=== PATIENT | female | born 2000 | race Caucasian/White ===

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

== ENCOUNTER → 2022-03-09 | Outpatient (REF) | payer BC ==
[~2022-03-09] MED LIST: IBUP-1022 PO; SERT50TA29
[2022-03-09 12:37] LABS: URINE PREG TEST NEGATIVE (NEGATIVE)
[2022-03-09 13:01] LABS: APPEARANCE, URINE MANUAL CLEAR (CLEAR); COLOR, URINE MANUAL YELLOW (YELLOW); SPECIFIC GRAVITY,URINE MANUAL 1.025 (1.002-1.035)
[2022-03-09 13:02] LABS: GLUCOSE, URINE (UA) MANUAL NEGATIVE (NEGATIVE); PROTEIN, URINE MANUAL TRACE mg/dL (NEGATIVE)
[2022-03-09 13:03] LABS: BILIRUBIN, URINE MANUAL NEGATIVE (NEGATIVE); BLOOD URINE MANUAL POSITIVE (NEGATIVE); KETONE, URINE MANUAL 1+ mg/dL (NEGATIVE); LEUKOCYTE ESTERASE, URINE MAN NEGATIVE (NEGATIVE); NITRITE, URINE MANUAL NEGATIVE (NEGATIVE); UROBILINOGEN, URINE MANUAL NORMAL (NORMAL)
[2022-03-09 14:05] LABS: BACTERIA, URINE SMALL AMOUNT; SQUAMOUS EPITHELIAL CELL URINE SMALL AMOUNT /hpf (SMALL AMT)
[2022-03-09 14:06] LABS: HYALINE CAST, URINE NONE SEEN /lpf (0-1); MUCUS, URINE SMALL AMOUNT (NEGATIVE)
[2022-03-09 14:19] LABS: GC DNA AMPLIFICATION NEGATIVE (NEGATIVE)
== END ==
LOC: M LAB REF 11:18
PROVIDERS: ATTEND Physician Assistant Medical
DX: N39.0 Urinary tract infection, site not specified (principal)

== ENCOUNTER → 2022-10-30 | Outpatient (REF) | payer BC | LOC: M PLALAB 09:08 | PROVIDERS: ATTEND Advanced Practice Midwife | DX: Z53.9 Procedure and treatment not carried out, unspecified reason (principal) ==

== ENCOUNTER → 2022-10-30 | Outpatient (CLI) | payer BC ==
[2022-10-30 14:19] LABS: HEMATOCRIT 36.1 % (36.0-47.0); HEMOGLOBIN 12.5 g/dl (12.0-15.5); MEAN CORPUSCULAR HEMOGLOBIN 31.1 pg (27.0-33.0); MEAN CORPUSCULAR HGB CONC 34.6 g/dl (32.0-36.5); MEAN CORPUSCULAR VOLUME 89.8 fl (80.0-96.0); PLATELET COUNT, AUTOMATED 320 10^3/uL (150-450); RED BLOOD COUNT 4.02 10^6/uL (4.00-5.40); WHITE BLOOD COUNT 6.4 10^3/uL (4.0-10.0)
[2022-10-30 14:54] LABS: HIV 1&2 SCREEN NEGATIVE (NEGATIVE)
[2022-10-30 15:01] LABS: HEPATITIS C VIRUS ABY INDEX 0.12 INDEX (<0.8)
[2022-10-30 16:06] LABS: GC DNA AMPLIFICATION NEGATIVE (NEGATIVE)
== END ==
LOC: M PLALAB 09:10
PROVIDERS: ATTEND Advanced Practice Midwife
DX: O23.591 Infection of other part of genital tract in pregnancy, first trimester (principal); O30.001 Twin pregnancy, unspecified number of placenta and unspecified number of amniotic sacs, first trimester; Z3A.00 Weeks of gestation of pregnancy not specified

== ENCOUNTER → 2022-11-22 | Outpatient (CLI) | payer BC | LOC: M WHC 09:54 | PROVIDERS: ATTEND Advanced Practice Midwife | DX: O30.001 Twin pregnancy, unspecified number of placenta and unspecified number of amniotic sacs, first trimester (principal) ==

== ENCOUNTER → 2023-01-07 | Outpatient (CLI) | payer BC | LOC: M WHC 14:10 | PROVIDERS: ATTEND Advanced Practice Midwife | DX: O30.032 Twin pregnancy, monochorionic/diamniotic, second trimester (principal); O32.1XX1 Maternal care for breech presentation, fetus 1; Z3A.19 19 weeks gestation of pregnancy ==

== ENCOUNTER → 2023-01-28 | Outpatient (CLI) | payer BC | LOC: M WHC 07:05 | PROVIDERS: ATTEND Advanced Practice Midwife | DX: O32.2XX0 Maternal care for transverse and oblique lie, not applicable or unspecified (principal); O30.032 Twin pregnancy, monochorionic/diamniotic, second trimester; Z3A.21 21 weeks gestation of pregnancy ==

== ENCOUNTER → 2023-03-22 | Outpatient (CLI) | payer BC | LOC: M WHC 13:18 | PROVIDERS: ATTEND Advanced Practice Midwife | DX: O30.033 Twin pregnancy, monochorionic/diamniotic, third trimester (principal); O36.5930 Maternal care for other known or suspected poor fetal growth, third trimester, not applicable or unspecified; Z3A.29 29 weeks gestation of pregnancy ==

== ENCOUNTER 2023-03-26 16:01 | Outpatient (CLI) | payer BC ==
[2023-03-26 16:34] VITALS: BP 115/61
[2023-03-26] MEDS ORDERED: BETAMETHASONE SOLUSPAN 6MG/ML 5ML VIAL IM ONE (16:55)
[2023-03-26] MEDS ORDERED: FERR325T3 PO (17:06)
[2023-03-26] MEDS ORDERED: FOLI400T13 PO (17:06)
[2023-03-26] MEDS ORDERED: PRENTAB53 PO (17:06)
[2023-03-26 17:15] VITALS: BP 105/61
[2023-03-26] MEDS ORDERED: HOME MED LIST COMPLETE! XX SCH (17:20)
[2023-03-27] MEDS ORDERED: TUMS750C5 PO (17:08)
[2023-03-27] MEDS ORDERED: TUMS500C PO (17:08)
== END 2023-03-26 19:41 | disposition home or self-care (01) ==
LOC: M LDO 16:01
PROVIDERS: ATTEND Obstetrics & Gynecology
DX: O36.5931 Maternal care for other known or suspected poor fetal growth, third trimester, fetus 1 (principal); O30.033 Twin pregnancy, monochorionic/diamniotic, third trimester; Z3A.30 30 weeks gestation of pregnancy; Z88.1 Allergy status to other antibiotic agents
CPT/HCPCS: 59025; 96372; G0463; J0702

== ENCOUNTER 2023-03-27 16:53 | Outpatient (CLI) | payer BC ==
[~2023-03-27] VITALS: Ht 165.1 cm; Wt 84.9 kg
[~2023-03-27 16:53] MED LIST changes: +FERR325T3 PO; +FOLI400T13 PO; +PRENTAB53 PO
[2023-03-27] MEDS ORDERED: TUMS500C PO (17:08)
[2023-03-27] MEDS ORDERED: TUMS750C5 PO (17:08)
[2023-03-27 17:09] VITALS: BP 123/61; O2SAT 98
[2023-03-27] MEDS ORDERED: BETAMETHASONE SOLUSPAN 6MG/ML 5ML VIAL IM ONE (17:10)
== END 2023-03-27 18:38 | disposition home or self-care (01) ==
LOC: M LDO 16:53
PROVIDERS: ATTEND Advanced Practice Midwife
DX: O36.5931 Maternal care for other known or suspected poor fetal growth, third trimester, fetus 1 (principal); O30.033 Twin pregnancy, monochorionic/diamniotic, third trimester; Z3A.30 30 weeks gestation of pregnancy
CPT/HCPCS: 59025; 76819; 76820; 96372; G0463; J0702

== ENCOUNTER → 2023-04-04 | Outpatient (CLI) | payer BC ==
[~2023-04-04] MED LIST changes: +TUMS500C PO; +TUMS750C5 PO
== END ==
LOC: M WHC 13:51
PROVIDERS: ATTEND Advanced Practice Midwife
DX: O30.033 Twin pregnancy, monochorionic/diamniotic, third trimester (principal); O36.5993 Maternal care for other known or suspected poor fetal growth, unspecified trimester, fetus 3; Z3A.31 31 weeks gestation of pregnancy; O32.2XX2 Maternal care for transverse and oblique lie, fetus 2

== ENCOUNTER → 2023-04-11 | Outpatient (CLI) | payer BC | LOC: M WHC 13:48 | PROVIDERS: ATTEND Advanced Practice Midwife | DX: O30.033 Twin pregnancy, monochorionic/diamniotic, third trimester (principal); O36.5930 Maternal care for other known or suspected poor fetal growth, third trimester, not applicable or unspecified; Z3A.32 32 weeks gestation of pregnancy ==

== ENCOUNTER → 2023-04-18 | Outpatient (CLI) | payer BC | LOC: M WHC 13:53 | PROVIDERS: ATTEND Advanced Practice Midwife | DX: O30.033 Twin pregnancy, monochorionic/diamniotic, third trimester (principal); O36.5990 Maternal care for other known or suspected poor fetal growth, unspecified trimester, not applicable or unspecified; Z3A.33 33 weeks gestation of pregnancy ==

== ENCOUNTER → 2023-04-25 | Outpatient (CLI) | payer BC | LOC: M WHC 13:57 | PROVIDERS: ATTEND Advanced Practice Midwife | DX: O30.033 Twin pregnancy, monochorionic/diamniotic, third trimester (principal); O36.5993 Maternal care for other known or suspected poor fetal growth, unspecified trimester, fetus 3; Z3A.34 34 weeks gestation of pregnancy; O32.2XX2 Maternal care for transverse and oblique lie, fetus 2 ==

== ENCOUNTER 2023-04-29 07:08 | Inpatient (IN) | payer BC, MEDICAID ==
[~2023-04-29] VITALS: Ht 165.1 cm; Wt 90.7 kg
[2023-04-29] VITALS (10 sets, daily range): BP systolic 122–142; BP diastolic 70–94; TEMP 97.4; O2SAT 94–97
[2023-04-29] MEDS ORDERED: TRANEXAMIC ACID INJection 1,000 MG in NS 100 ML IV PRN (07:25)
[2023-04-29] MEDS ORDERED: CARBOPROST TROMETHAMINE 250 MCG/ML AMP IM PRN (07:25)
[2023-04-29] MEDS ORDERED: OXYTOCIN DRIP 30 UNITS in IV 1 EA IV PRN (07:25)
[2023-04-29] MEDS ORDERED: METHYLERGONOVINE MALEATE 0.2MG/ML 1ML VIAL IM PRN (07:25)
[2023-04-29] MEDS: LACTATED RINGER'S 1000 ML IV STA (07:47)
[2023-04-29 07:53] LABS: HEMATOCRIT 35.7 % (36.0-47.0); MEAN CORPUSCULAR HEMOGLOBIN 33.1 pg (27.0-33.0); MEAN CORPUSCULAR HGB CONC 36.4 g/dl (32.0-36.5); MEAN CORPUSCULAR VOLUME 90.8 fl (80.0-96.0); PLATELET COUNT, AUTOMATED 227 10^3/uL (150-450); RED BLOOD COUNT 3.93 10^6/uL (4.00-5.40); WHITE BLOOD COUNT 11.8 10^3/uL (4.0-10.0)
[2023-04-29] MEDS: LR 1,000 ML IV SCH (08:13)
[2023-04-29] MEDS: BICITRA 30ML SOLN UDC PO ONE (08:13)
[2023-04-29] MEDS: ceFAZolin SOD 2 GM in IV 1 EA IV ONE (08:13)
[2023-04-29] MEDS: PRENATAL VITAMINS CHEWABLE TABLET PO SCH (09:00)
[2023-04-29] MEDS ORDERED: MORPHINE PRES-FREE INJ 10 MG/10 ML VIAL As Ordered ONE (10:07)
[2023-04-29] MEDS ORDERED: OXYTOCIN 30UNITS IN 0.9% NaCl 500ML IV BAG As Ordered ONE (10:13)
[2023-04-29] MEDS ORDERED: LIDOCAINE 2% 100MG/5ML SDV (FOR ANES.) As Ordered ONE (10:35)
[2023-04-29] MEDS ORDERED: propofoL 200 MG/20 ML VIAL As Ordered ONE (10:35)
[2023-04-29] MEDS ORDERED: ROCURONIUM BROMIDE 50MG/5ML VIAL As Ordered ONE (10:37)
[2023-04-29] MEDS ORDERED: fentaNYL 100 MCG/2 ML INJECTION As Ordered ONE (10:44)
[2023-04-29] MEDS ORDERED: SUCCINYLCHOLINE 100MG/5ML SYRINGE As Ordered ONE (10:47)
[2023-04-29] MEDS ORDERED: SUGAMMADEX SODIUM 500 MG/5 ML VIAL (BRIDION) As Ordered ONE (10:49)
[2023-04-29] MEDS ORDERED: KETOROLAC 60MG 2ML VIAL As Ordered ONE (10:55)
[2023-04-29] MEDS ORDERED: ACETAMINOPHEN 1000MG 100ML IV BAG As Ordered ONE (10:55)
[2023-04-29 11:09] LABS: CORD GAS ABE V -0.1; CORD GAS HCO3 V 26.6 MMOL/L; CORD GAS PCO2 V 50.7 mmHg; CORD GAS PH V 7.337 UNITS; CORD GAS PO2 V 25.1 mmHg; CORD GAS SBC V 23.4 MMOL/L; CORD GAS TCO2 V 28.1 MMOL/L
[2023-04-29] MEDS ORDERED: OXYTOCIN INJ 10UNITS/ML 1ML VIAL As Ordered ONE (11:10)
[2023-04-29 11:12] LABS: CORD GAS ABE A -1.2; CORD GAS HCO3 A 25.9 MMOL/L; CORD GAS HCO3 V 27.2 MMOL/L; CORD GAS O2 SAT A 46.9 %; CORD GAS O2 SAT V 31.2 %; CORD GAS PCO2 A 52.8 mmHg; CORD GAS PH A 7.309 UNITS; CORD GAS PH V 7.274 UNITS; CORD GAS PO2 A 20.6 mmHg; CORD GAS SBC A 22.2 MMOL/L; CORD GAS TCO2 A 27.5 MMOL/L
[2023-04-29 11:16] LABS: CORD GAS ABE A -0.9; CORD GAS HCO3 A 26.7 MMOL/L; CORD GAS O2 SAT A 47.5 %; CORD GAS PCO2 A 55.5 mmHg; CORD GAS PH A 7.3 UNITS; CORD GAS PO2 A 20.7 mmHg; CORD GAS SBC A 22.5 MMOL/L; CORD GAS TCO2 A 28.4 MMOL/L
[2023-04-29] MEDS ORDERED: METOCLOPRAMIDE INJ 10MG/2ML VIAL IV PRN (11:35)
[2023-04-29] MEDS ORDERED: oxyCODONE 5MG TAB PO PRN ×2 (11:35→11:45)
[2023-04-29] MEDS ORDERED: NALOXONE INJ 0.4MG/1ML VIAL IV PRN ×2 (11:35)
[2023-04-29] MEDS ORDERED: diphenhydrAMINE 50MG/ML VIAL IV PRN (11:35)
[2023-04-29] MEDS ORDERED: fentaNYL 100 MCG/2 ML INJECTION IV PRN (11:35)
[2023-04-29] MEDS ORDERED: SLF 3 ML SYR IV SCH (11:35)
[2023-04-29] MEDS ORDERED: ONDANSETRON 4MG 2ML VIAL IV PRN (11:35)
[2023-04-29] MEDS ORDERED: LR 1,000 ML IV SCH (11:35)
[2023-04-29] MEDS ORDERED: **NOTE PATIENT COMMENT** MISC XX SCH (11:35)
[2023-04-29] MEDS: OXYTOCIN DRIP 30 UNITS in IV 1 EA IV SCH (11:45)
[2023-04-29] MEDS ORDERED: RHOGAM 300MCG (1500IU) INJ IM SCH (11:45)
[2023-04-29] MEDS ORDERED: SIMETHICONE 80MG CHEW TAB PO PRN (11:45)
[2023-04-29] MEDS ORDERED: HYDROmorphone HCL 2MG/ML 1ML VIAL As Ordered ONE (11:57)
[2023-04-29] MEDS: HYDROMORPHONE HCL 0.5 MG/ 0.5 ML SYRINGE IV PRN ×2 (12:22→12:38)
[2023-04-29] MEDS: oxyCODONE 5MG TAB PO PRN (12:40)
[2023-04-29] MEDS ORDERED: ACET-683 PO (16:18)
[2023-04-29] MEDS ORDERED: IBUP-1022 PO (16:19)
[2023-04-29] MEDS ORDERED: OXYC-517 PO (16:19)
[2023-04-29] MEDS ORDERED: COLA100C5 PO (16:19)
[2023-04-29] MEDS: ACETAMINOPHEN 500 MG TAB PO SCH (17:38)
[2023-04-29] MEDS: KETOROLAC 30 MG/ML 1ML VIAL IV SCH (17:39)
[2023-04-30] MEDS: oxyCODONE 5MG TAB PO PRN (00:43)
[2023-04-30 02:00] VITALS: BP 124/58; O2SAT 97
[2023-04-30 06:00] VITALS: BP 135/79; O2SAT 98
[2023-04-30 06:13] LABS: HEMATOCRIT 31.3 % (36.0-47.0); HEMOGLOBIN 11.3 g/dl (12.0-15.5); MEAN CORPUSCULAR HEMOGLOBIN 32.9 pg (27.0-33.0); MEAN CORPUSCULAR HGB CONC 36.1 g/dl (32.0-36.5); MEAN CORPUSCULAR VOLUME 91.3 fl (80.0-96.0); PLATELET COUNT, AUTOMATED 213 10^3/uL (150-450); RED BLOOD COUNT 3.43 10^6/uL (4.00-5.40); WHITE BLOOD COUNT 13.2 10^3/uL (4.0-10.0)
[2023-04-30 10:00] VITALS: BP 125/74; O2SAT 96
[2023-04-30] MEDS: IBUPROFEN 600MG TAB PO SCH (12:20)
[2023-04-30 14:00] VITALS: BP 135/66; O2SAT 99
[2023-04-30] MEDS: DOCUSATE SODIUM 100MG CAPSULE PO PRN (16:58)
[2023-04-30 18:00] VITALS: BP 136/79; O2SAT 99
[2023-04-30 22:00] VITALS: BP 139/77; O2SAT 98
[2023-05-01 02:00] VITALS: BP 128/73; O2SAT 98
[2023-05-01 06:00] VITALS: BP 124/75; O2SAT 99
[2023-05-01] MEDS: MEASLES,MUMPS,RUBELLA VACCINE INJ (MMR-II) SC.IMMUN ONE (09:34)
[2023-05-01 10:00] VITALS: BP 141/81; O2SAT 97
[2023-05-01] MEDS ORDERED: CEFD1CAP9 PO (11:22)
== END 2023-05-01 18:00 | disposition home or self-care (01) | DRG 540 ==
LOC: M LDI 07:08 → M OBS 13:02
PROVIDERS: ADMIT Obstetrics & Gynecology; ATTEND Obstetrics & Gynecology
PROC: 10D00Z1 Extraction of Products of Conception, Low, Open Approach (ICD-10-PCS; principal; 2023-04-29 09:30)
DX: O36.5991 Maternal care for other known or suspected poor fetal growth, unspecified trimester, fetus 1 (principal); O30.033 Twin pregnancy, monochorionic/diamniotic, third trimester; Z37.2 Twins, both liveborn; Z3A.35 35 weeks gestation of pregnancy